=== PATIENT | female | born 1975 | race Two or more races ===

== ENCOUNTER → 2022-04-12 | Outpatient (CLI) | payer BC ==
[2022-04-12 11:01] LABS: Basophils # (auto) 0 10 ^3/uL (0-0.2); Basophils % (auto) 0.7 % (0.0-2.0); Eosinophils # (auto) 0.1 10 ^3/uL (0-0.8); Hematocrit 45.6 % (36.0-46.0); Hemoglobin 15.8 g/dL (12.2-16.2); Lymphocytes # (auto) 1.7 10 ^3/uL (0.4-5.4); Lymphocytes % (auto) 30.2 % (10.0-50.0); Mean Corpuscular Hemoglobin 28.6 pg (28.0-32.0); Mean Corpuscular Hgb Conc. 34.5 g/dL (32.0-36.0); Mean Corpuscular Volume 82.8 fL (80.0-100.0); Monocytes # (auto) 0.3 10 ^3/uL (0-1.3); Monocytes % (auto) 5.8 % (0.0-12.0); Neutrophils # (auto) 3.4 10 ^3/uL (1.6-8.6); Neutrophils % (auto) 62.3 % (37.0-80.0); Nucleated Red Blood Cells % 0.3 %; Red Blood Cells 5.51 10^6/uL (4.0-5.20); Red Cell Distribution Width 13.7 % (11.8-14.3); White Blood Cell 5.5 10^3/uL (4.4-10.8)
[2022-04-12 12:23] LABS: Albumin 3.5 g/dL (3.4-5.0); Anion Gap 8 (5-15); Calcium 9.1 mg/dL (8.5-10.1); Carbon Dioxide 28 mmol/L (21-32); Chloride 102 mmol/L (98-107); Glucose 251 mg/dL (74-106); Potassium 3.8 mmol/L (3.5-5.1); Sodium 138 mmol/L (136-145)
[2022-04-12 12:49] LABS: Alanine Aminotransferase 25 U/L (13-56); Alkaline Phosphatase 71 U/L (45-117); Aspartate Aminotransferase 25 U/L (15-37); BUN/Creatinine Ratio 14.1; Bilirubin, Total 0.4 mg/dL (0.2-1.0); Blood Urea Nitrogen 9 mg/dL (7-18); Cholesterol 215 mg/dL (< 200); GFR African American 127 mL/min; GFR Non-African American 105 mL/min; HDL Cholesterol 32 mg/dL (40-59); Total Protein 7.4 g/dL (6.4-8.2); Triglycerides 1347 mg/dL (< 150)
[2022-04-12 12:59] LABS: Free T3 3.02 pg/mL (2.3-4.2); Free T4 (Free Thyroxine) 1.19 ng/dL (0.89-1.76); Leuteinizing Hormone 30.3 IU/L
[2022-04-12 13:00] LABS: Follicle Stimulating Hormone 76.22 IU/L (SEE BELOW)
== END | disposition home or self-care (01) ==
LOC: LAB 10:37
PROVIDERS: ATTEND Obstetrics & Gynecology
DX: Z00.00 Encounter for general adult medical examination without abnormal findings (principal); E11.69 Type 2 diabetes mellitus with other specified complication; I10 Essential (primary) hypertension; E78.5 Hyperlipidemia, unspecified; N95.0 Postmenopausal bleeding
CPT/HCPCS: 36415; 80053; 80061; 82670; 83001; 83002; 83036; 84403; 84439; 84443; 84481; 85025

== ENCOUNTER → 2022-10-03 | Outpatient (CLI) | payer BC ==
[2022-10-03 10:22] LABS: Basophils # (auto) 0.1 10 ^3/uL (0-0.2); Basophils % (auto) 1.2 % (0.0-2.0); Eosinophils # (auto) 0 10 ^3/uL (0-0.8); Eosinophils % (auto) 0.7 % (0.0-7.0); Hematocrit 41.6 % (36.0-46.0); Hemoglobin 14.8 g/dL (12.2-16.2); Lymphocytes # (auto) 1.6 10 ^3/uL (0.4-5.4); Lymphocytes % (auto) 31.4 % (10.0-50.0); Mean Corpuscular Hemoglobin 29.4 pg (28.0-32.0); Mean Corpuscular Hgb Conc. 35.7 g/dL (32.0-36.0); Mean Corpuscular Volume 82.5 fL (80.0-100.0); Monocytes # (auto) 0.3 10 ^3/uL (0-1.3); Monocytes % (auto) 5.5 % (0.0-12.0); Neutrophils # (auto) 3.1 10 ^3/uL (1.6-8.6); Neutrophils % (auto) 61.2 % (37.0-80.0); Nucleated Red Blood Cells % 0.3 %; Red Blood Cells 5.04 10^6/uL (4.0-5.20); Red Cell Distribution Width 13.9 % (11.8-14.3); White Blood Cell 5.1 10^3/uL (4.4-10.8)
[2022-10-03 10:27] LABS: Urine Bacteria NONE SEEN /hpf (None Seen); Urine Blood Negative /uL (Negative); Urine Specific Gravity 1.025 (1.001-1.035); Urine WBC 6 /hpf (0 - 5)
[2022-10-03 10:58] LABS: Albumin 3.9 g/dL (3.4-5.0); Anion Gap 8 (5-15); Blood Urea Nitrogen 12 mg/dL (7-18); Carbon Dioxide 25 mmol/L (21-32); Chloride 102 mmol/L (98-107); Glucose 331 mg/dL (74-106); Potassium 3.8 mmol/L (3.5-5.1); Sodium 135 mmol/L (136-145)
[2022-10-03 11:10] LABS: Alanine Aminotransferase 40 U/L (13-56); Alkaline Phosphatase 76 U/L (45-117); Aspartate Aminotransferase 21 U/L (15-37); BUN/Creatinine Ratio 17.4 (10.0-20.0); Bilirubin, Total 0.4 mg/dL (0.2-1.0); Cholesterol 207 mg/dL (< 200); GFR African American 117 mL/min; GFR Non-African American 97 mL/min; HDL Cholesterol 27 mg/dL (40-59); Total Protein 7.4 g/dL (6.4-8.2); Triglycerides 1348 mg/dL (< 150)
== END | disposition home or self-care (01) ==
LOC: LAB 09:57
PROVIDERS: ATTEND Internal Medicine
DX: E11.69 Type 2 diabetes mellitus with other specified complication (principal); I10 Essential (primary) hypertension; E78.2 Mixed hyperlipidemia
CPT/HCPCS: 36415; 80053; 80061; 81001; 82043; 82570; 83036; 84439; 84443; 85025

== ENCOUNTER 2023-03-19 17:37 | Inpatient (IN) | payer BC ==
[~2023-03-19] VITALS: Ht 162.6 cm; Wt 99.0 kg
[2023-03-19 19:00] LABS: Basophils # (auto) 0.1 10 ^3/uL (0-0.2); Basophils % (auto) 1.2 % (0.0-2.0); Eosinophils # (auto) 0 10 ^3/uL (0-0.8); Eosinophils % (auto) 0.8 % (0.0-7.0); Hematocrit 42.6 % (36.0-46.0); Hemoglobin 14.7 g/dL (12.2-16.2); Lymphocytes # (auto) 2.1 10 ^3/uL (0.4-5.4); Lymphocytes % (auto) 35.9 % (10.0-50.0); Mean Corpuscular Hgb Conc. 34.6 g/dL (32.0-36.0); Mean Corpuscular Volume 83.8 fL (80.0-100.0); Monocytes # (auto) 0.3 10 ^3/uL (0-1.3); Monocytes % (auto) 5.8 % (0.0-12.0); Neutrophils # (auto) 3.2 10 ^3/uL (1.6-8.6); Neutrophils % (auto) 56.3 % (37.0-80.0); Nucleated Red Blood Cells % 0.2 %; Red Blood Cells 5.08 10^6/uL (4.0-5.20); Red Cell Distribution Width 13.6 % (11.8-14.3); White Blood Cell 5.7 10^3/uL (4.4-10.8)
[2023-03-19 19:28] LABS: Alanine Aminotransferase 21 U/L (7-40); Albumin 4.8 g/dL (3.2-4.8); Alkaline Phosphatase 67 U/L (46-116); Anion Gap 10 (5-15); Aspartate Aminotransferase 24 U/L (13-40); BUN/Creatinine Ratio 16.5 (10.0-20.0); Blood Urea Nitrogen 15 mg/dL (9-23); Calcium 10.5 mg/dL (8.7-10.4); Carbon Dioxide 26 mmol/L (20-30); Chloride 102 mmol/L (98-107); Glucose 302 mg/dL (74-106); Potassium 3.8 mmol/L (3.5-5.1); Sodium 138 mmol/L (136-145)
[2023-03-19 19:29] LABS: Bilirubin, Total 0.4 mg/dL (0.2-1.0); Total Protein 7.4 g/dL (5.7-8.2)
[2023-03-19 20:49] LABS: Urine Bacteria FEW /hpf (None Seen); Urine Blood 1+ /uL (Negative); Urine Clarity HAZY (Clear); Urine Color Colorless (Yellow); Urine Protein, UAD TRACE (Negative); Urine Specific Gravity 1.024 (1.001-1.035); Urine Urobilinogen Normal (Negative); Urine WBC 11 /hpf (0 - 5); Urine pH 5.5 (5.0-8.0)
[2023-03-19] MEDS ORDERED: cefTRIAXone 1GM/50ML D5W 50 ML IV ONE (21:45)
[2023-03-19] MEDS ORDERED: DEXTROSE (50%) 50ML SYRG IV PRN (22:00)
[2023-03-19] MEDS ORDERED: MORPHINE SULFATE INJ 2 MG/ml SYRG IV PRN (22:00)
[2023-03-19] MEDS ORDERED: TEMAZEPAM 15 MG CAP PO PRN (22:00)
[2023-03-20 00:39] VITALS: O2SAT 96
[2023-03-20] MEDS: HYDROcodone-ACET 5/325MG TAB PO PRN ×2 (00:42→09:28)
[2023-03-20] MEDS: ACCU-CHEK COMFORT CURVE STRIP VI SCH ×5 (00:43→22:54)
[2023-03-20] MEDS: InsuLIN REG 1unit/0.01ml Soln (100units/ml) SC SCH ×5 (01:01→22:56)
[2023-03-20 04:27] LABS: Basophils # (auto) 0 10 ^3/uL (0-0.2); Basophils % (auto) 0.6 % (0.0-2.0); Eosinophils # (auto) 0 10 ^3/uL (0-0.8); Eosinophils % (auto) 0.6 % (0.0-7.0); Hematocrit 41.2 % (36.0-46.0); Hemoglobin 14.1 g/dL (12.2-16.2); Lymphocytes # (auto) 1.5 10 ^3/uL (0.4-5.4); Lymphocytes % (auto) 23.9 % (10.0-50.0); Mean Corpuscular Hemoglobin 28.9 pg (28.0-32.0); Mean Corpuscular Hgb Conc. 34.3 g/dL (32.0-36.0); Mean Corpuscular Volume 84.2 fL (80.0-100.0); Monocytes # (auto) 0.4 10 ^3/uL (0-1.3); Monocytes % (auto) 6.8 % (0.0-12.0); Neutrophils # (auto) 4.4 10 ^3/uL (1.6-8.6); Neutrophils % (auto) 68.1 % (37.0-80.0); Red Blood Cells 4.89 10^6/uL (4.0-5.20); Red Cell Distribution Width 13.6 % (11.8-14.3); White Blood Cell 6.4 10^3/uL (4.4-10.8)
[2023-03-20 04:34] LABS: Alanine Aminotransferase 22 U/L (7-40); Alkaline Phosphatase 64 U/L (46-116); Anion Gap 9 (5-15); BUN/Creatinine Ratio 16.4 (10.0-20.0); Blood Urea Nitrogen 12 mg/dL (9-23); Calcium 9.7 mg/dL (8.7-10.4); Carbon Dioxide 25 mmol/L (20-30); Chloride 103 mmol/L (98-107); Glucose 307 mg/dL (74-106); Potassium 3.8 mmol/L (3.5-5.1); Sodium 137 mmol/L (136-145)
[2023-03-20 04:35] LABS: Albumin 4.7 g/dL (3.2-4.8); Aspartate Aminotransferase 20 U/L (13-40); Bilirubin, Total 0.4 mg/dL (0.2-1.0); Total Protein 7.2 g/dL (5.7-8.2)
[2023-03-20] MEDS: METOPROLOL SUCCINATE XL 50 MG TAB PO SCH (09:27)
[2023-03-20] MEDS: ONDANSETRON HCL 4 MG/2 ML VIAL IV PRN (09:28)
[2023-03-20] MEDS ORDERED: LOSARTAN POTASSIUM 25 MG TAB PO SCH (10:00)
[2023-03-20] MEDS ORDERED: GADOTERATE MEG 10 MMOL/20ml INJ (0.5MMOL/ml) IV ONE (10:12)
[2023-03-20] MEDS ORDERED: LORazepam 2MG/ML-1ML VIAL IV ONE (10:15)
[2023-03-20] MEDS ORDERED: DEXTROSE (50%) 50ML SYRG IV PRN (10:15)
[2023-03-20] MEDS ORDERED: TAMSULOSIN HYDROCHLORIDE 0.4 MG CAP PO ONE (10:15)
[2023-03-20] MEDS ORDERED: MANNITOL FTV 25% 12.5 GM/50 ML 50 ML IV ONE (10:15)
[2023-03-20] MEDS: SODIUM CHLORIDE 0.9% 1,000 ML IV SCH ×2 (12:56→23:16)
[2023-03-20 13:14] VITALS: BP 128/64; PULSE 97; RESP 19; TEMP 97.6; O2SAT 94
[2023-03-20] MEDS ORDERED: GLIP10TA9 PO (14:37)
[2023-03-20] MEDS ORDERED: CETI10CA PO (14:37)
[2023-03-20] MEDS ORDERED: ATOR40TA52 PO (14:37)
[2023-03-20] MEDS ORDERED: FENO145T27 PO (14:37)
[2023-03-20] MEDS ORDERED: OMEP20TA PO (14:37)
[2023-03-20] MEDS ORDERED: FLUT50SP28 (14:37)
[2023-03-20] MEDS ORDERED: SITA100T7 PO (14:37)
[2023-03-20] MEDS ORDERED: LOSA50TA46 PO (14:37)
[2023-03-20 17:00] VITALS: BP 118/83; PULSE 87; RESP 20; TEMP 97.9; O2SAT 95
[2023-03-20] MEDS: TAMSULOSIN HYDROCHLORIDE 0.4 MG CAP PO SCH (18:44)
[2023-03-20] MEDS: LOSARTAN POTASSIUM 25 MG TAB PO SCH (18:44)
[2023-03-20 20:00] VITALS: BP 107/61; PULSE 97; RESP 17; TEMP 97.8; O2SAT 94
[2023-03-20] MEDS: cefTRIAXone 1GM/50ML D5W 50 ML IV SCH (20:57)
[2023-03-20 21:48] VITALS: BP 107/61; PULSE 97; RESP 17; TEMP 97.8; O2SAT 94
[2023-03-21 05:00] VITALS: BP 100/54; PULSE 89; RESP 15; TEMP 97.8; O2SAT 97
[2023-03-21] MEDS: SODIUM CHLORIDE 0.9% 1,000 ML IV SCH ×3 (06:15→21:00)
[2023-03-21] MEDS: ACCU-CHEK COMFORT CURVE STRIP VI SCH ×4 (06:36→22:03)
[2023-03-21] MEDS: InsuLIN REG 1unit/0.01ml Soln (100units/ml) SC SCH ×4 (06:38→22:03)
[2023-03-21 07:16] LABS: Basophils # (auto) 0 10 ^3/uL (0-0.2); Basophils % (auto) 0.6 % (0.0-2.0); Eosinophils # (auto) 0.1 10 ^3/uL (0-0.8); Eosinophils % (auto) 1.4 % (0.0-7.0); Hematocrit 38.8 % (36.0-46.0); Hemoglobin 13.2 g/dL (12.2-16.2); Lymphocytes # (auto) 1.5 10 ^3/uL (0.4-5.4); Lymphocytes % (auto) 31.1 % (10.0-50.0); Mean Corpuscular Hgb Conc. 34.1 g/dL (32.0-36.0); Mean Corpuscular Volume 84.9 fL (80.0-100.0); Monocytes # (auto) 0.4 10 ^3/uL (0-1.3); Monocytes % (auto) 7.7 % (0.0-12.0); Neutrophils # (auto) 2.9 10 ^3/uL (1.6-8.6); Neutrophils % (auto) 59.2 % (37.0-80.0); Nucleated Red Blood Cells % 0.1 %; Red Blood Cells 4.57 10^6/uL (4.0-5.20); Red Cell Distribution Width 13.8 % (11.8-14.3); White Blood Cell 4.9 10^3/uL (4.4-10.8)
[2023-03-21 07:27] LABS: INR 1.11 (0.9-1.15); Partial Thromboplastin Time 24.4 SEC (24.5-34.5); Prothrombin Time 11.6 sec (9.3-11.8)
[2023-03-21 07:31] LABS: Calcium 8.7 mg/dL (8.7-10.4); Chloride 106 mmol/L (98-107); Sodium 139 mmol/L (136-145)
[2023-03-21 07:33] LABS: Anion Gap 9 (5-15); Carbon Dioxide 24 mmol/L (20-30)
[2023-03-21 07:38] LABS: Blood Urea Nitrogen 7 mg/dL (9-23); Glucose 255 mg/dL (74-106)
[2023-03-21 09:00] VITALS: BP 131/76; PULSE 101; RESP 16; TEMP 97.5; O2SAT 98
[2023-03-21] MEDS: METOPROLOL SUCCINATE XL 50 MG TAB PO SCH (10:18)
[2023-03-21] MEDS: ACETAMINOPHEN 325 MG TAB PO PRN ×2 (10:26→20:57)
[2023-03-21 13:00] VITALS: BP 113/69; PULSE 97; RESP 16; TEMP 97.4; O2SAT 94
[2023-03-21 17:00] VITALS: BP 133/81; PULSE 85; RESP 16; TEMP 97.3; O2SAT 99
[2023-03-21] MEDS: TAMSULOSIN HYDROCHLORIDE 0.4 MG CAP PO SCH (18:08)
[2023-03-21] MEDS: LOSARTAN POTASSIUM 25 MG TAB PO SCH (18:09)
[2023-03-21 20:00] VITALS: PULSE 87; O2SAT 94
[2023-03-21] MEDS: cefTRIAXone 1GM/50ML D5W 50 ML IV SCH (20:44)
[2023-03-21 22:00] VITALS: BP 135/73; PULSE 71; RESP 17; TEMP 97.5; O2SAT 94
[2023-03-22] VITALS (7 sets, daily range): BP systolic 128–148; BP diastolic 61–85; PULSE 74–97; RESP 17–19; TEMP 97.2–98; O2SAT 94–98
[2023-03-22] MEDS: HYDROcodone-ACET 5/325MG TAB PO PRN (02:01)
[2023-03-22] MEDS: ONDANSETRON HCL 4 MG/2 ML VIAL IV PRN (02:01)
[2023-03-22] MEDS: ACCU-CHEK COMFORT CURVE STRIP VI SCH ×4 (06:27→22:09)
[2023-03-22] MEDS: InsuLIN REG 1unit/0.01ml Soln (100units/ml) SC SCH ×4 (06:27→22:11)
[2023-03-22] MEDS ORDERED: glipiZIDE 5 MG TAB PO ONE (08:45)
[2023-03-22] MEDS: METOPROLOL SUCCINATE XL 50 MG TAB PO SCH (08:53)
[2023-03-22] MEDS: cefTRIAXone 1GM/50ML D5W 50 ML IV SCH ×2 (08:57→21:17)
[2023-03-22] MEDS: SODIUM CHLORIDE 0.9% 1,000 ML IV SCH ×2 (12:17→22:12)
[2023-03-22] MEDS: TAMSULOSIN HYDROCHLORIDE 0.4 MG CAP PO SCH (18:04)
[2023-03-22] MEDS: glipiZIDE 5 MG TAB PO SCH (18:04)
[2023-03-22] MEDS: LOSARTAN POTASSIUM 25 MG TAB PO SCH (18:05)
[2023-03-23 05:00] VITALS: BP 129/68; PULSE 71; RESP 18; TEMP 97.5; O2SAT 97
[2023-03-23] MEDS: glipiZIDE 5 MG TAB PO SCH ×2 (06:03→18:09)
[2023-03-23] MEDS: ACCU-CHEK COMFORT CURVE STRIP VI SCH ×4 (06:03→21:36)
[2023-03-23] MEDS: InsuLIN REG 1unit/0.01ml Soln (100units/ml) SC SCH ×4 (06:04→21:36)
[2023-03-23 08:00] VITALS: BP 142/87; PULSE 81; RESP 17; TEMP 98; O2SAT 97
[2023-03-23 08:30] VITALS: BP 142/87; PULSE 81; RESP 17; TEMP 98; O2SAT 97
[2023-03-23] MEDS: SODIUM CHLORIDE 0.9% 1,000 ML IV SCH (08:34)
[2023-03-23] MEDS: cefTRIAXone 1GM/50ML D5W 50 ML IV SCH (08:39)
[2023-03-23] MEDS: METOPROLOL SUCCINATE XL 50 MG TAB PO SCH (09:31)
[2023-03-23 13:00] VITALS: BP 141/85; PULSE 82; RESP 17; TEMP 98; O2SAT 96
[2023-03-23 17:00] VITALS: BP 141/89; PULSE 79; RESP 17; TEMP 97.9; O2SAT 96
[2023-03-23] MEDS ORDERED: MEROPENEM 1GM IVPB 100 ML IV ONE (17:15)
[2023-03-23] MEDS ORDERED: MEROPENEM 1GM IVPB 100 ML IV SCH (17:44)
[2023-03-23] MEDS: ERTAPENEM SOD INJ 1 GM in SODIUM CHL 0.9% 50 ML IV SCH ×2 (18:09→20:07)
[2023-03-23] MEDS: TAMSULOSIN HYDROCHLORIDE 0.4 MG CAP PO SCH (18:11)
[2023-03-23] MEDS: LOSARTAN POTASSIUM 25 MG TAB PO SCH (18:11)
[2023-03-23 22:00] VITALS: BP 134/67; PULSE 80; RESP 18; TEMP 97.5; O2SAT 93
[2023-03-24 05:00] VITALS: BP 139/79; PULSE 85; RESP 16; TEMP 97.8; O2SAT 98
[2023-03-24] MEDS: glipiZIDE 5 MG TAB PO SCH ×2 (06:01→18:27)
[2023-03-24] MEDS: ACCU-CHEK COMFORT CURVE STRIP VI SCH ×4 (06:02→21:54)
[2023-03-24] MEDS: InsuLIN REG 1unit/0.01ml Soln (100units/ml) SC SCH ×4 (06:07→21:55)
[2023-03-24 08:30] VITALS: BP 158/80; PULSE 92; RESP 18; TEMP 98.4; O2SAT 99
[2023-03-24] MEDS: METOPROLOL SUCCINATE XL 50 MG TAB PO SCH (10:39)
[2023-03-24] MEDS: ACETAMINOPHEN 325 MG TAB PO PRN (10:44)
[2023-03-24 16:30] VITALS: BP 138/87; PULSE 83; RESP 18; TEMP 97.9; O2SAT 98
[2023-03-24] MEDS: ERTAPENEM SOD INJ 1 GM in SODIUM CHL 0.9% 50 ML IV SCH (18:25)
[2023-03-24] MEDS: LOSARTAN POTASSIUM 25 MG TAB PO SCH (18:26)
[2023-03-24 22:00] VITALS: BP 146/86; PULSE 83; RESP 18; TEMP 97.8; O2SAT 97
[2023-03-25 05:00] VITALS: BP 132/86; PULSE 82; RESP 18; TEMP 97.4; O2SAT 100
[2023-03-25] MEDS: glipiZIDE 5 MG TAB PO SCH ×2 (06:01→18:00)
[2023-03-25] MEDS: ACCU-CHEK COMFORT CURVE STRIP VI SCH ×3 (06:01→17:00)
[2023-03-25] MEDS: InsuLIN REG 1unit/0.01ml Soln (100units/ml) SC SCH ×3 (06:03→17:00)
[2023-03-25 07:35] LABS: Basophils # (auto) 0 10 ^3/uL (0-0.2); Basophils % (auto) 0.8 % (0.0-2.0); Eosinophils # (auto) 0.1 10 ^3/uL (0-0.8); Eosinophils % (auto) 1.1 % (0.0-7.0); Hematocrit 41.6 % (36.0-46.0); Hemoglobin 14.3 g/dL (12.2-16.2); Lymphocytes # (auto) 1.4 10 ^3/uL (0.4-5.4); Lymphocytes % (auto) 29.3 % (10.0-50.0); Mean Corpuscular Hemoglobin 28.9 pg (28.0-32.0); Mean Corpuscular Hgb Conc. 34.5 g/dL (32.0-36.0); Mean Corpuscular Volume 83.7 fL (80.0-100.0); Monocytes # (auto) 0.3 10 ^3/uL (0-1.3); Monocytes % (auto) 7.1 % (0.0-12.0); Neutrophils % (auto) 61.7 % (37.0-80.0); Nucleated Red Blood Cells % 0.5 %; Red Blood Cells 4.96 10^6/uL (4.0-5.20); Red Cell Distribution Width 13.6 % (11.8-14.3); White Blood Cell 4.9 10^3/uL (4.4-10.8)
[2023-03-25 07:50] LABS: Chloride 105 mmol/L (98-107); Sodium 139 mmol/L (136-145)
[2023-03-25 07:51] LABS: Anion Gap 8 (5-15); Carbon Dioxide 26 mmol/L (20-30)
[2023-03-25 07:52] LABS: Calcium 9.3 mg/dL (8.5-10.1)
[2023-03-25 07:56] LABS: BUN/Creatinine Ratio 12.1 (10.0-20.0); Blood Urea Nitrogen 8 mg/dL (9-23); Glucose 221 mg/dL (74-106)
[2023-03-25] MEDS: ACETAMINOPHEN 325 MG TAB PO PRN (10:37)
[2023-03-25] MEDS: METOPROLOL SUCCINATE XL 50 MG TAB PO SCH (10:38)
[2023-03-25 17:00] VITALS: BP 126/77; PULSE 92; RESP 20; TEMP 98.4; O2SAT 96
[2023-03-25] MEDS: LOSARTAN POTASSIUM 25 MG TAB PO SCH (18:00)
[2023-03-25] MEDS: ERTAPENEM SOD INJ 1 GM in SODIUM CHL 0.9% 50 ML IV SCH (18:00)
== END 2023-03-25 18:20 | disposition home health service (06) | DRG 690 ==
LOC: ER 17:37 → EEVIPCON 17:37 → OVERFLOW 21:52 → CENTRAL 21:52
PROVIDERS: ADMIT Nurse Practitioner; ATTEND Internal Medicine
PROC: 05HF33Z Insertion of Infusion Device into Left Cephalic Vein, Percutaneous Approach (ICD-10-PCS; principal; 2023-03-24)
PROC: B54NZZA Ultrasonography of Left Upper Extremity Veins, Guidance (ICD-10-PCS; 2023-03-24)
DX: N13.6 Pyonephrosis (principal); Z16.12 Extended spectrum beta lactamase (ESBL) resistance; Z16.19 Resistance to other specified beta lactam antibiotics; I10 Essential (primary) hypertension; N20.0 Calculus of kidney; E11.9 Type 2 diabetes mellitus without complications; K76.0 Fatty (change of) liver, not elsewhere classified; B96.20 Unspecified Escherichia coli [E. coli] as the cause of diseases classified elsewhere; E66.9 Obesity, unspecified; E78.5 Hyperlipidemia, unspecified; Z88.8 Allergy status to other drugs, medicaments and biological substances; Z87.442 Personal history of urinary calculi; Z68.37 Body mass index [BMI] 37.0-37.9, adult
CPT/HCPCS: 36415; 74018; 74176; 74183; 76775; 80048; 80053; 81001; 82105; 82962; 85025; 85610; 85730; 87086; 87088; 87186; 96365; 96372; G0378; J0696; J1335; J1815; J2185; J2405

== ENCOUNTER → 2023-04-08 | Outpatient (CLI) | payer BC ==
[~2023-04-08] MED LIST: ATOR40TA52 PO; CETI10CA PO; FENO145T27 PO; FLUT50SP28; GLIP10TA9 PO; LOSA50TA46 PO; OMEP20TA PO; SITA100T7 PO
[2023-04-08 07:49] LABS: Basophils # (auto) 0.1 10 ^3/uL (0-0.2); Basophils % (auto) 0.9 % (0.0-2.0); Eosinophils # (auto) 0.1 10 ^3/uL (0-0.8); Hematocrit 41.3 % (36.0-46.0); Hemoglobin 14.3 g/dL (12.2-16.2); Lymphocytes # (auto) 1.9 10 ^3/uL (0.4-5.4); Lymphocytes % (auto) 24.8 % (10.0-50.0); Mean Corpuscular Hemoglobin 28.7 pg (28.0-32.0); Mean Corpuscular Hgb Conc. 34.6 g/dL (32.0-36.0); Mean Corpuscular Volume 82.8 fL (80.0-100.0); Monocytes # (auto) 0.5 10 ^3/uL (0-1.3); Neutrophils # (auto) 5.2 10 ^3/uL (1.6-8.6); Neutrophils % (auto) 67.3 % (37.0-80.0); Nucleated Red Blood Cells % 0.1 %; Red Blood Cells 4.99 10^6/uL (4.0-5.20); Red Cell Distribution Width 13.5 % (11.8-14.3); White Blood Cell 7.8 10^3/uL (4.4-10.8)
[2023-04-08 08:48] LABS: Alanine Aminotransferase 21 U/L (7-40); Albumin 4.7 g/dL (3.2-4.8); Alkaline Phosphatase 55 U/L (46-116); Anion Gap 9 (5-15); Aspartate Aminotransferase 22 U/L (13-40); BUN/Creatinine Ratio 17.9 (10.0-20.0); Blood Urea Nitrogen 14 mg/dL (9-23); Calcium 10.3 mg/dL (8.5-10.1); Carbon Dioxide 26 mmol/L (20-30); Chloride 102 mmol/L (98-107); Glucose 248 mg/dL (74-106); Potassium 4.6 mmol/L (3.5-5.1); Sodium 137 mmol/L (136-145); Triglycerides 594 mg/dL (< 150)
[2023-04-08 08:49] LABS: Bilirubin, Total 0.4 mg/dL (0.2-1.0); Cholesterol 185 mg/dL (< 200); HDL Cholesterol 31 mg/dL (40-59); Total Protein 7.3 g/dL (5.7-8.2)
[2023-04-08 11:41] LABS: Urine Bacteria NONE SEEN /hpf (None Seen); Urine Blood Negative /uL (Negative); Urine Clarity Clear (Clear); Urine Color Yellow (Yellow); Urine Hyaline Cast FEW /lpf (0 - 2); Urine Protein, UAD TRACE (Negative); Urine Specific Gravity 1.021 (1.001-1.035); Urine Urobilinogen Normal (Negative); Urine WBC 6 /hpf (0 - 5); Urine pH 5.5 (5.0-8.0)
== END | disposition home or self-care (01) ==
LOC: LAB 07:35
PROVIDERS: ATTEND Internal Medicine
DX: E11.65 Type 2 diabetes mellitus with hyperglycemia (principal); E11.69 Type 2 diabetes mellitus with other specified complication; E78.2 Mixed hyperlipidemia; E66.9 Obesity, unspecified; I10 Essential (primary) hypertension; N20.0 Calculus of kidney; N39.0 Urinary tract infection, site not specified
CPT/HCPCS: 36415; 80053; 80061; 81001; 83036; 85025; 87086

== ENCOUNTER → 2023-07-07 | Outpatient (CLI) | payer BC ==
[2023-07-07 16:30] LABS: Urine Bacteria FEW /hpf (None Seen); Urine Blood Negative /uL (Negative); Urine Clarity HAZY (Clear); Urine Color Yellow (Yellow); Urine Mucus FEW (None Seen); Urine Protein, UAD 1+ (Negative); Urine Specific Gravity 1.034 (1.001-1.035); Urine Urobilinogen Normal (Negative); Urine WBC 21 /hpf (0 - 5); Urine pH 5.5 (5.0-8.0)
== END | disposition home or self-care (01) ==
LOC: LAB 16:16
PROVIDERS: ATTEND Urology
DX: N20.0 Calculus of kidney (principal); N39.0 Urinary tract infection, site not specified
CPT/HCPCS: 81001; 87086; 87088; 87186

== ENCOUNTER → 2023-12-03 | Outpatient (CLI) | payer BC ==
[~2023-12-03] MED LIST changes: +LOSA-534 PO; -LOSA50TA46 PO
[2023-12-03 08:21] LABS: Urine Bacteria FEW /hpf (None Seen); Urine Blood Negative /uL (Negative); Urine Clarity Clear (Clear); Urine Color Light-Yellow (Yellow); Urine Protein, UAD Negative (Negative); Urine Specific Gravity 1.009 (1.001-1.035); Urine Urobilinogen Normal (Negative); Urine WBC 2 /hpf (0 - 5); Urine pH 5.5 (5.0-9.0)
[2023-12-03 08:49] LABS: Chloride 103 mmol/L (98-107); Potassium 4.4 mmol/L (3.5-5.1); Sodium 137 mmol/L (136-145)
[2023-12-03 08:50] LABS: Anion Gap 10 (5-15); Calcium 9.8 mg/dL (8.7-10.4); Carbon Dioxide 24 mmol/L (20-30)
[2023-12-03 08:55] LABS: BUN/Creatinine Ratio 12.1 (10.0-20.0); Blood Urea Nitrogen 8 mg/dL (9-23); Glucose 279 mg/dL (74-106)
[2023-12-03 08:56] LABS: Creatinine, Urine 29.67 mg/dL (30.0-125.0)
== END | disposition home or self-care (01) ==
LOC: LAB 08:03
PROVIDERS: ATTEND Internal Medicine
DX: I10 Essential (primary) hypertension (principal); R16.0 Hepatomegaly, not elsewhere classified; R93.5 Abnormal findings on diagnostic imaging of other abdominal regions, including retroperitoneum; E78.2 Mixed hyperlipidemia; E11.69 Type 2 diabetes mellitus with other specified complication
CPT/HCPCS: 36415; 80048; 81001; 82043; 82570

== ENCOUNTER → 2024-03-24 | Outpatient (CLI) | payer BC ==
[2024-03-24 09:06] LABS: Alanine Aminotransferase 20 U/L (7-40); Albumin 4.5 g/dL (3.2-4.8); Alkaline Phosphatase 43 U/L (46-116); Anion Gap 9 (5-15); Aspartate Aminotransferase 18 U/L (13-40); BUN/Creatinine Ratio 20.7 (10.0-20.0); Blood Urea Nitrogen 12 mg/dL (9-23); Calcium 9.8 mg/dL (8.7-10.4); Carbon Dioxide 26 mmol/L (20-31); Chloride 106 mmol/L (98-107); Glucose 188 mg/dL (74-106); Potassium 4.3 mmol/L (3.5-5.1); Sodium 141 mmol/L (136-145); Triglycerides 524 mg/dL (< 150)
[2024-03-24 09:07] LABS: Bilirubin, Total 0.5 mg/dL (0.2-1.0); Cholesterol 180 mg/dL (< 200); HDL Cholesterol 34 mg/dL (40-59); Total Protein 7.2 g/dL (5.7-8.2)
[2024-03-24 11:38] LABS: Urine Bacteria FEW /hpf (None Seen); Urine Blood Negative /uL (Negative); Urine Clarity Clear (Clear); Urine Color Light-Yellow (Yellow); Urine Mucus FEW (None Seen); Urine Protein, UAD TRACE (Negative); Urine Specific Gravity 1.022 (1.001-1.035); Urine Urobilinogen Normal (Negative); Urine WBC 2 /hpf (0 - 5); Urine pH 6.5 (5.0-9.0)
== END | disposition home or self-care (01) ==
LOC: LAB 08:16
PROVIDERS: ATTEND Internal Medicine
DX: I10 Essential (primary) hypertension (principal); E78.2 Mixed hyperlipidemia; E11.29 Type 2 diabetes mellitus with other diabetic kidney complication; R82.90 Unspecified abnormal findings in urine
CPT/HCPCS: 36415; 80053; 80061; 81001; 83036

== ENCOUNTER → 2024-09-01 | Outpatient (CLI) | payer BC ==
[2024-09-01 08:44] LABS: Basophils # (auto) 0.1 10 ^3/uL (0-0.2); Basophils % (auto) 1.4 % (0.0-2.0); Eosinophils # (auto) 0.1 10 ^3/uL (0-0.8); Eosinophils % (auto) 1.1 % (0.0-7.0); Hematocrit 40.4 % (36.0-46.0); Hemoglobin 14.1 g/dL (12.2-16.2); Lymphocytes # (auto) 1.7 10 ^3/uL (0.4-5.4); Lymphocytes % (auto) 33.3 % (10.0-50.0); Mean Corpuscular Hemoglobin 28.6 pg (28.0-32.0); Mean Corpuscular Volume 81.6 fL (80.0-100.0); Monocytes # (auto) 0.4 10 ^3/uL (0-1.3); Monocytes % (auto) 7.2 % (0.0-12.0); Nucleated Red Blood Cells % 0.1 %; Platelet Count (auto) 319 10^3/uL (140-450); Red Blood Cells 4.95 10^6/uL (4.0-5.20); Red Cell Distribution Width 13.7 % (11.8-14.3); White Blood Cell 5.2 10^3/uL (4.4-10.8)
[2024-09-01 09:08] LABS: Alanine Aminotransferase 17 U/L (7-40); Alkaline Phosphatase 46 U/L (46-116); Anion Gap 10 (5-15); Aspartate Aminotransferase 18 U/L (13-40); BUN/Creatinine Ratio 20.6 (10.0-20.0); Blood Urea Nitrogen 14 mg/dL (9-23); Calcium 10.2 mg/dL (8.7-10.4); Carbon Dioxide 26 mmol/L (20-31); Chloride 103 mmol/L (98-107); Potassium 4.5 mmol/L (3.5-5.1); Sodium 139 mmol/L (136-145); Total Protein 7.3 g/dL (5.7-8.2)
[2024-09-01 09:09] LABS: Bilirubin, Total 0.5 mg/dL (0.2-1.0); Cholesterol 199 mg/dL (< 200)
[2024-09-01 09:11] LABS: Albumin 4.8 g/dL (3.2-4.8); Glucose 200 mg/dL (74-106); HDL Cholesterol 36 mg/dL (40-59); Triglycerides 456 mg/dL (< 150)
== END | disposition home or self-care (01) ==
LOC: LAB 07:57
PROVIDERS: ATTEND Nurse Practitioner Family
DX: I10 Essential (primary) hypertension (principal); E11.69 Type 2 diabetes mellitus with other specified complication; E66.9 Obesity, unspecified
CPT/HCPCS: 36415; 80053; 80061; 82306; 83036; 84443; 85025